=== PATIENT | male | born 1950 | race Caucasian/White ===

== ENCOUNTER 2017-04-04 03:46 | Emergency (ER) | payer OTHER ==
[~2017-04-04] VITALS: Ht 157.5 cm; Wt 72.4 kg
[~2017-04-04 03:46] MED LIST: AMLO5TAB4 PO; LOPE2CAP PO; ONDA4TAB14 PO; SIMV20TA PO
[2017-04-04 03:54] VITALS: Ht 157.5 cm; Wt 72.4 kg
--- NOTE | 2017-04-04 04:54 | ERD ---
ER Documentation Chief Complaint Chief Complaint sore throat x 5 hours (ZEINA HANLEY) HPI 67-year-old male who presents emergency department for throat pain for 5 hours. Denies headache, dizziness, blurred vision, neck pain, difficulty swallowing, shoulder pain, chest pain, back pain, abdominal pain, loss of appetite, constipation, diarrhea, nausea, vomiting, urinary symptoms, loss of bowel bladder control, changes in bowel bladder habits, numbness or tingling sensation , difficulty walking, difficulty breathing when lying flat, recent long travel, recent exposure to any illness, recent antibiotic use in the last 3 months, fever, chills. Allergies to penicillin. Past medical history of hyperlipidemia, hypertension, GERD. Patient also added that he has a chronic garbled speech for about 6 years. No surgical history. Medication: Lipitor, amlodipine, omeprazole. Social: Not working at this time. Denies smoking, use of alcoholic beverages, use of illegal drugs. (ZEINA HANLEY) ROS All systems reviewed and are negative except as per history of present illness. (ZEINA HANLEY) Medications Home Meds Active Scripts Acetaminophen* (Tylophen*) 500 Mg Capsule, 1 CAP PO Q6H Y for PAIN AND OR ELEVATED TEMP, #20 CAP Prov:ZEINA HANLEY 04/04/17 Ondansetron Hcl* (Zofran*) 4 Mg Tablet, 4 MG PO Q8H Y for NAUSEA AND/OR VOMITING , #20 TAB Prov:ZEINA HANLEY 04/04/17 Loperamide Hcl* (Imodium*) 2 Mg Capsule, 2 MG PO .AFTER EA LOOSE BM Y for DIARRHEA, #10 TAB Prov:RAJINDER BROWN MD 04/01/16 Ondansetron (Ondansetron Odt) 4 Mg Tab.rapdis, 4 MG PO Q6H Y for NAUSEA AND/OR VOMITING, #30 TAB Prov:RAJINDER BROWN MD 04/01/16 Reported Medications Amlodipine Besylate* (Norvasc*) 5 Mg Tablet, 5 MG PO DAILY, TAB 04/01/16 Simvastatin* (Zocor*) 20 Mg Tablet, 20 MG PO QHS, #30 TAB 04/01/16 Allergies Allergies: Coded Allergies: Penicillins (Verified Allergy, Severe, rash, 04/04/17) PMhx/Soc Medical and Surgical Hx: pt denies Surgical Hx History of Surgery: No Hx Neurological Disorder: No Hx Respiratory Disorders: No Hx Cardiac Disorders: No Hx Psychiatric Problems: No Hx Miscellaneous Medical Probl: Yes (HTN, HIGH CHOLESTEROL) Hx Alcohol Use: No Hx Substance Use: No Hx Tobacco Use: No Smoking Status: Never smoker (ZEINA HANLEY) Physical Exam Vitals Vital Signs Date Time Temp Pulse Resp B/P Pulse Ox O2 Delivery O2 Flow Rate FiO2 04/04/17 05:26 74 18 186/96 97 Room Air 04/04/17 03:54 97.8 78 20 135/80 96 (EVAN LATHAM DO) Physical Exam Const: [] Head: Atraumatic Eyes: Normal Conjunctiva ENT: Normal External Ears, Nose and Mouth. Throat: Uvula is in midline and not displaced. Tonsils are +1 bilaterally without redness and without exudates. Tolerating secretions. Patent airway. No swelling to neck. Neck: Full range of motion..~ No meningismus. Resp: Clear to auscultation bilaterally Cardio: Regular rate and rhythm, no murmurs Abd: Soft, non tender, non distended. Normal bowel sounds Skin: No petechiae or rashes Back: No midline or flank tenderness Ext: No cyanosis, or edema Neur: Awake and alert. Cranial nerves II through XII are intact. Romberg test is negative. No neurological deficits. Psych: Normal Mood and Affect (ZEINA HANLEY F) Results 24 hrs Current Medications Medications (Trade) Dose Ordered Sig/Paulino Route PRN Reason Start Time Stop Time Status Last Admin Dose Admin Lidocaine (Xylocaine (Viscous)) 15 ml ONCE ONCE PO 04/04/17 05:30 04/04/17 05:31 DC 04/04/17 05:23 (EVAN LATHAM DO) Results 24 hrs Current Medications Medications (Trade) Dose Ordered Sig/Paulino Route PRN Reason Start Time Stop Time Status Last Admin Dose Admin Lidocaine (Xylocaine (Viscous)) 15 ml ONCE ONCE PO 04/04/17 05:30 04/04/17 05:31 DC 04/04/17 05:23 (ZEINA HANLEY F) Procedures/MDM 67-year-old male who presents emergency department for throat pain for 5 hours. Denies headache, dizziness, blurred vision, neck pain, difficulty swallowing, shoulder pain, chest pain, back pain, abdominal pain, loss of appetite, constipation, diarrhea, nausea, vomiting, urinary symptoms, loss of bowel bladder control, changes in bowel bladder habits, numbness or tingling sensation , difficulty walking, difficulty breathing when lying flat, recent long travel, recent exposure to any illness, recent antibiotic use in the last 3 months, fever, chills. Allergies to penicillin. Past medical history of hyperlipidemia, hypertension, GERD. Patient also added that he has a chronic garbled speech for about 6 years. No surgical history. Medication: Lipitor, amlodipine, omeprazole. Social: Not working at this time. Denies smoking, use of alcoholic beverages, use of illegal drugs. Physical exam: Unremarkable. Throat: Uvula is in midline and not displaced. Tonsils are +1 bilaterally without redness and without exudates. Tolerating secretions. Patent airway. No swelling to neck. Cranial nerves II through XII are intact. Romberg test is negative. Neurological deficits. No neurovascular deficits. Disease process was explained to the patient. He verbalized understanding and agreed with the plan of care. Treatment: P.o. challenge. Viscous lidocaine p.o. Reevaluation: Denies headache, dizziness, blurry vision, neck pain, throat pain , difficulty swallowing, shoulder pain, chest pain, back pain, abdominal pain, nausea, vomiting. No episode of emesis here in the emergency department. No abdominal tenderness. No neurological deficit no neurovascular deficits. Cranial nerves II through XII are intact. Romberg test negative. Differential diagnosis: Peritonsillar abscess versus strep throat versus pharyngitis versus throat pain Final diagnosis: Pharyngitis. Prescription: Tylenol. Zofran. Follow-up with PCP in the next 24-48 hours. Come back here in the emergency department for any new symptoms or any worsening of symptoms. All questions and concerns are answered. Patient verbalized understanding and agreed with the plan of care. Hemodynamically stable on discharge. (ZEINA HANLEY) I agree with the evaluation and management of this elderly male. (EVAN LATHAM DO) Departure Diagnosis: Primary Impression: Sore throat Additional Impression: Pharyngitis Condition: Stable Additional Instructions: Follow-up with PCP in the next 24-48 hours. Come back here in the emergency department for any new symptoms or any worsening of symptoms. All questions and concerns are answered. Patient verbalized understanding and agreed with the plan of care. ZEINA HANLEY Apr 04, 2017 04:54 EVAN LATHAM DO Apr 06, 2017 09:37
[2017-04-04] MEDS ORDERED: ONDA4TAB8 PO (05:20)
[2017-04-04] MEDS ORDERED: ACET500C5 PO (05:20)
[2017-04-04 05:26] VITALS: BP 186/96; PULSE 74; RESP 18
[2017-04-04] MEDS ORDERED: LIDOCAINE 2% VISC 15 ML CUP PO ONE (05:30)
== END 2017-04-04 05:26 | disposition home or self-care (01) ==
LOC: FTE 03:46
DX: J02.9 Acute pharyngitis, unspecified (principal); I10 Essential (primary) hypertension
CPT/HCPCS: Z7502; Z7610; 99283

== ENCOUNTER 2017-05-30 03:46 | Emergency (ER) | END 2017-05-30 06:47 | disposition home or self-care (01) ==

== ENCOUNTER 2017-05-31 01:31 | Emergency (ER) | END 2017-05-31 08:33 | disposition home or self-care (01) ==

== ENCOUNTER 2018-12-04 09:10 | Emergency (ER) | payer MEDICARE, OTHER ==
[~2018-12-04] VITALS: Ht 165.1 cm; Wt 69.5 kg
[~2018-12-04 09:10] MED LIST changes: +CYCL10TA7 PO; +IBUP800T48 PO; -LOPE2CAP PO; -ONDA4TAB14 PO; -SIMV20TA PO; +TRAM50TA2 PO
[2018-12-04 09:15] VITALS: BP 195/85; PULSE 67; RESP 14; Ht 165.1 cm; Wt 69.5 kg
--- NOTE | 2018-12-04 09:46 | ERD ---
ER Documentation Chief Complaint Chief Complaint PT with lower back pain x 3days, no injury reported. HPI 68-year-old male presents to ED complaining of low back pain located on his right lower back x3 days. He denies any injuries or trauma to his back. He states that the pain is constant, 6 out of 10 sharp pain he denies any radiation of his pain. He [place]lof[place] any relief of his pain. He reports similar history about 2 years ago in which he was given a steroid injection and outpatient pills which helped relieve his pain. He states that this is similar to that. He denies any fevers or chills, loss of bowel or bladder function or saddle anesthesia. Patient reports past medical history of only gastritis in the past and denies any other past medical history ROS All systems reviewed and are negative except as per history of present illness. Medications Home Meds Active Scripts Cyclobenzaprine Hcl* (Cyclobenzaprine Hcl*) 10 Mg Tablet, 10 MG PO TID, #15 TAB Prov:REMIGIO CAVANAUGH PA-C 12/04/18 Ibuprofen* (Motrin*) 800 Mg Tab, 800 MG PO Q6H PRN for PAIN AND OR ELEVATED TEMP, #30 TAB Prov:REMIGIO CAVANAUGH PA-C 12/04/18 Tramadol HCl (Tramadol HCl) 50 Mg Tablet, 50 MG PO Q6 PRN for PAIN, #20 TAB Prov:JANE AKINS MD 05/30/17 Reported Medications Amlodipine Besylate* (Norvasc*) 5 Mg Tablet, 5 MG PO DAILY, TAB 04/01/16 Allergies Allergies: Coded Allergies: Penicillins (Verified Allergy, Severe, rash, 05/30/17) PMhx/Soc History of Surgery: No Anesthesia Reaction: No Hx Neurological Disorder: No Hx Respiratory Disorders: No Hx Cardiac Disorders: Yes (HTN, HIGH CHOLESTEROL) Hx Psychiatric Problems: No Hx Miscellaneous Medical Probl: No Hx Alcohol Use: No Hx Substance Use: No Hx Tobacco Use: No FmHx Family History: No diabetes Physical Exam Vitals Vital Signs Date Temp Pulse Resp B/P (MAP) Pulse Ox O2 O2 Flow FiO2 Time Delivery Rate 12/04/18 98.1 67 14 195/85 97 09:15 (121) Physical Exam Const: No acute distress Head: Atraumatic Neck: Full range of motion, no tenderness Resp: Clear to auscultation bilaterally Cardio: Regular rate and rhythm, no murmurs Abd: Soft, non tender, non distended. Normal bowel sounds Back: Tenderness on the right lower back, muscle spasming Ext: No cyanosis, or edema Neur: Awake and alert Psych: Normal Mood and Affect Results 24 hrs Current Medications Medications Dose Sig/Paulino Start Time Status Last (Trade) Ordered Route PRN Stop Time Admin Dose Reason Admin Ibuprofen 800 mg ONCE ONCE 12/04/18 DC 12/04/18 (Motrin) PO 10:00 09:52 12/04/18 10:01 Prednisone 20 mg ONCE ONCE 12/04/18 DC 12/04/18 (Prednisone) PO 10:00 09:52 12/04/18 10:01 Procedures/MDM ED COURSE: The patient was stable throughout ED course. I kept the patient informed of laboratory and diagnostic imaging results throughout the ED course. DIAGNOSTIC IMAGING: none indicated at this time MEDICATIONS GIVEN: Prednisone, motrin Patient tolerated medication well with no adverse reactions. Patient reported improvement in pain. MEDICAL DECISION MAKING: Patient is a 68-year-old male reporting right lower back pain without any injury or trauma x3 days. On physical exam patient showed tenderness and muscle spasm to the right lower back. He denied any other symptoms and the rest of physical exam was unremarkable. X-ray imaging was discussed with the patient and we both agreed that it was not indicated at this time. Patient was given prednisone and Motrin in the ED to help relieve inflammation. He was discharged with Flexeril and Motrin and told to follow-up with primary care. H&P and other data not c/w emergent process (eg. GERI, obstructed pyelo, AAA, CAUDA EQUINA SYNDROME, CORD COMPRESSION, INFILTRATIVE, INFECTIOUS ETIOLOGY, EPIDURAL ABSCESS, FRACTURE). Vital signs were reviewed. Patient is afebrile. Patient was not hypoxic. Patient was hemodynamically stable. Patient was told to follow up with primary care for further care and management. PRESCRIPTION: flexeril, motrin DISCHARGE: At this time, patient is stable for discharge and outpatient management. I have instructed the patient to follow-up with his/her primary care physician in 1-2 days. I have discussed with the patient the possibility of needing to see a specialist for further workup and imaging studies if symptoms persist. I have instructed the patient to promptly return to the ER for any new or worsening symptoms including increased pain, fever, nausea, vomiting, weakness or LOC. The patient expressed understanding of and agreement with this plan. All questions were answered. Home care instructions were provided. Disclaimer: Inadvertent spelling and grammatical errors are likely due to EHR/dictation software use and do not reflect on the overall quality of patient care. Also, please note that the electronic time recorded on this note does not necessarily reflect the actual time of the patient encounter. Departure Diagnosis: Primary Impression: Muscle spasm Condition: Fair Patient Instructions: Back Pain (Acute Or Chronic) Referrals: COMMUNITY CLINICS YOU HAVE RECEIVED A MEDICAL SCREENING EXAM AND THE RESULTS INDICATE THAT YOU DO NOT HAVE A CONDITION THAT REQUIRES URGENT TREATMENT IN THE EMERGENCY DEPARTMENT. FURTHER EVALUATION AND TREATMENT OF YOUR CONDITION CAN WAIT UNTIL YOU ARE SEEN IN YOUR DOCTORS OFFICE WITHIN THE NEXT 1-2 DAYS. IT IS YOUR RESPONSIBILITY TO MAKE AN APPOINTMENT FOR FOLOW-UP CARE. IF YOU HAVE A PRIMARY DOCTOR --you should call your primary doctor and schedule an appointment IF YOU DO NOT HAVE A PRIMARY DOCTOR YOU CAN CALL OUR PHYSICIAN REFERRAL HOTLINE AT IF YOU CAN NOT AFFORD TO SEE A PHYSICIAN YOU CAN CHOSE FROM THE FOLLOWING [facility] [address] [facility]. [facility] [address] [facility]. [facility] [address] [facility] [facility] [address] [facility] [facility] [address] [facility]. [facility]. [address] [facility]. [facility] YOU HAVE RECEIVED A MEDICAL SCREENING EXAM AND THE RESULTS INDICATE THAT YOU DO NOT HAVE A CONDITION THAT REQUIRES URGENT TREATMENT IN THE EMERGENCY DEPARTMENT. FURTHER EVALUATION AND TREATMENT OF YOUR CONDITION CAN WAIT UNTIL YOU ARE SEEN IN YOUR DOCTORS OFFICE WITHIN THE NEXT 1-2 DAYS. IT IS YOUR RESPONSIBILITY TO MAKE AN APPOINTMENT FOR FOLOW-UP CARE. IF YOU HAVE A PRIMARY DOCTOR --you should call your primary doctor and schedule and appointment IF YOU DO NOT HAVE A PRIMARY DOCTOR YOU CAN CALL OUR PHYSICIAN REFERRAL HOTLINE AT . IF YOU CAN NOT AFFORD TO SEE A PHYSICIAN YOU CAN CHOSE FROM THE FOLLOWING [facility] INSTITUTIONS: [facility] [address] [place] [address] [facility] [address] [place] [address] [facility] + [facility] [address] [place] [address] Additional Instructions: Llame al doctor MAANA y romeo cresencio BLAKE PARA DENTRO DE 1-2 CARPENTER.Dgale a la secretaria que nosotros le instruimos hacer esta blake.Avise o llame si lowe condicin se empeora antes de la blake. Regresa aqui si peor o no mejor. REMIGIO CAVANAUGH PA-C Dec 04, 2018 09:46
[2018-12-04] MEDS ORDERED: predniSONE 20 MG TAB PO ONE (10:00)
[2018-12-04] MEDS ORDERED: IBUPROFEN 800 MG TAB PO ONE (10:00)
== END 2018-12-04 10:16 | disposition home or self-care (01) ==
LOC: FTE 09:10
DX: M62.830 Muscle spasm of back (principal); I10 Essential (primary) hypertension
CPT/HCPCS: 99283; J7512